=== PATIENT | female | born 1985 | race Hispanic/Latino ===

== ENCOUNTER 2019-09-11 08:15 | Outpatient (RCR) | payer OTHER, SELFPAY ==
--- NOTE | 2019-07-03 15:28 | PT.OPPOC ---
Current Diagnoses Sacrococcygeal disorders, not elsewhere classified (07/03/19) Uterovaginal prolapse, unspecified (07/03/19) Visit Care Team Role Provider Type Hortencia Gross MD Attending Provider Non-Staff Specialty: [facility] Address: [address] [place] [address], [id number] Email: Plan Of Care PT-OP-T Assessment and Plan Start: 07/03/19 07:30 Freq: Status: Active Protocol: Document 07/03/19 07:30 AMB (Rec: 07/04/19 12:59 AMB [email or web address]) Physical Therapy Assessment Rehab Potential Rehabilitation Potential Good Evaluation Complexity Number of Personal Factors/Comorbidities 1-2 Number of Body Systems Impaired 3 Clinical Presentation at Evaluation Evolving Impairments Impairments Functional Activities,Pain, Strength Goals Two Impairment Continence Short Term Goal (STG) Yaneli will move from sit to stand without leaking. STG Duration 4 weeks Software Asset Manager Goal (LTG) Yaneli will cough without leaking. LTG Duration 8 weeks One Impairment Pain Short Term Goal (STG) Yaneli will tolerate moderate pressure on her L obterator internus without an increase in pain. STG Duration 4 weeks Software Asset Manager Goal (LTG) Yaneli will lift her 2 year old with 4/10 pain or less. LTG Duration 8 weeks Assessment Summary Assessment Yaneli attends PT for pelvic floor relaxation in the context of back and SI pain that began during 5 years ago. She does have a tight obterator internus on the L, but that did not reproduce her back pain today. We will see how she did after the initial evaluation and instruct in appropriate stretching and manual therapy dependent upon her reaction to that. She does have prolapse and some leaking, but her pelvic floor strength was moderately strong. Will further discuss continued safe strengthening and relaxation training. Physical Therapy Plan Frequency and Duration Frequency of Treatment 1x/Week Duration of Treatment 12 weeks Plan of Care Start Date 07/03/19 Plan of Care End Date 09/25/19 Therapeutic Interventions Therapeutic Interventions Home Exercise Program,Manual Therapy,Neuromuscular Re- education,Self-Care/Home Management,Soft Tissue Mobilization,Therapeutic Activities,Therapeutic Exercises Modalities Biofeedback,Electric Stimulation Next Visit Focus/Plan Next Note Type Treatment Note Next Visit Plan Can begin with levator/ obterator internus NMES and manual therapy, but quickly assess if this is affecting back/leg pain. Further behavioral changes and education in relation to prolapse. Plan of Care Dates Plan of Care Start Date 07/03/19 Plan of Care End Date 09/25/19
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
== END 2019-12-13 08:21 ==
LOC: PHYS 08:15
PROVIDERS: Visit Provider Family Medicine
DX: N81.4 Uterovaginal prolapse, unspecified (principal); M53.3 Sacrococcygeal disorders, not elsewhere classified
CPT/HCPCS: 97110; 97112; 97140; 97162; 97535